=== PATIENT | male | born 1975 | race Asian ===

== ENCOUNTER 2024-03-07 13:43 | Emergency (ER) | payer OTHER, SELFPAY ==
[2024-03-07 13:46] VITALS: BP 171/98
[2024-03-07 14:08] LABS: % Basophils 1.1 % (0-2); % Eosinophils 2.4 % (0-6); % Immature Granulocytes 0.2 % (0-0.5); % Lymphocytes 33.5 % (20.5-51.1); % Neutrophils 47.8 % (42.2-75.2); Absolute Basophils 0.1 10^3/uL (0-0.2); Absolute Eosinophils 0.1 10^3/uL (0-0.7); Absolute Lymphocytes 1.5 10^3/uL (1.2-3.4); Absolute Monocytes 0.7 10^3/uL (0.1-0.6); Absolute Neutrophils 2.2 10^3/uL (1.4-6.5); Hematocrit 44.2 % (39.0-52.0); Hemoglobin 14.7 g/dL (13.0-18.0); Mean Corp Hgb Conc. 33.3 g/dL (33.0-37.0); Mean Corpuscular Hgb 27.3 pg (27.0-31.0); Mean Corpuscular Volume 82.2 fL (80.0-94.0); Mean Platelet Volume 10.8 fL (7.4-10.4); Nucleated Red Blood Cells % 0 % (-); Platelet Count 234 10^3/uL (130-400); Red Blood Cell Count 5.38 10^6/uL (4.70-6.10); Red Cell Dist. Width 13.8 % (11.5-14.5); White Blood Cell Count 4.6 10^3/uL (4.8-10.8)
[2024-03-07 14:17] LABS: ALT (SGPT) 30 U/L (0-50); AST (SGOT) 32 U/L (17-59); Albumin 4.5 g/dl (3.5-5.0); Alkaline Phosphatase 74 U/L (38-126); Blood Urea Nitrogen 13 mg/dl (9-20); Calcium 9.7 mg/dl (8.4-10.2); Glucose 96 mg/dl (70-99); Lipase 72 U/L (23-300); Sodium 136 mmol/L (135-145); Total Bilirubin 0.5 mg/dl (0.2-1.3); Total Protein 7.3 g/dl (6.3-8.2); eGFR > 60.00
[2024-03-07 14:29] LABS: Carbon Dioxide 23 mmol/L (22-30); Chloride 106 mmol/L (98-107); Potassium 4.1 mmol/L (3.5-5.1)
[2024-03-07 14:39] LABS: Urine Albumin Negative (Neg - Trace); Urine Bilirubin Negative (Negative); Urine Character Clear (Clear); Urine Color Yellow; Urine Glucose Negative (Negative); Urine Ketone Negative (Negative); Urine Leukocyte Negative (Negative); Urine Nitrite Negative (Negative); Urine Occult Blood Trace (Negative); Urine Urobilinogen Negative (Neg - 1+); Urine pH 6.5 (5.0-9.0)
[2024-03-07 14:49] LABS: Urine Red Blood Cell 0-2 /HPF (0-2); Urine White Cell 0-2 /HPF (0-5)
[2024-03-07 14:50] LABS: Urine Granular Cast 0-2 /LPF (0)
--- NOTE | 2024-03-07 16:18 | ED.GENMED ---
History of Present Illness
General
Chief Complaint: Abdominal Pain
Source: patient
Exam Limitations: none
Time Seen by Provider: 03/07/24 16:06
Nursing documentation reviewed up to this point in time: agreed with
Travel History
Have you had any contact with someone who has COVID-19?: No
Do you have any symptoms of coronavirus? Fever > 100 degrees, chills, cough, shortness of breath, sore throat, loss of taste or smell, muscle aches, or headache?: No
History of Present Illness
History of Present Illness:
Patient is a 48-year-old male who presents to the ER for evaluation of right-sided back pain and right-sided lower quadrant abdominal pain. He reports this started about 2-3 weeks ago however has been increasing in intensity for the past several
days. He denies any associated urinary frequency urgency or dysuria. Denies any obvious blood in his urine. Denies any nausea vomiting fever chills. He does report initially it was worse when he walked. He denies any injury.
Review of Systems
Review of Systems
Allergies reviewed?: Yes
All Other Systems: ROS reviewed and negative except as documented in HPI and ROS
Constitutional: Reports no symptoms; Denies fever, fatigue or chills
EENT: Reports no symptoms
Respiratory: Reports no symptoms
Cardiac: Reports no symptoms
ABD/GI: Reports no symptoms
Musculoskeletal: Reports back pain (right sided back pain )
Skin: Reports no symptoms
Neurological: Reports no symptoms
Psychiatric: Reports no symptoms
Phy Exam
General Physical Exam
General Presentation: no apparent distress
General age: appears stated age
General Skin: warm and dry
General Habitus: normal
General Mental: alert
General Hydration: appears well hydrated
Gastrointestinal Exam
Gastrointestinal Exam: normal bowel sounds, non tender and soft
Neurological Exam
Neurological Exam: alert and oriented x3
Musculoskeletal Exam
Musculoskeletal Exam: full ROM
Skin Exam
Skin Exam: normal color and warm/dry
Psychiatric Exam
Psychiatric Exam: normal mood/affect
Course
Orders/Labs/Results
Orders:
Orders
03/07/24 13:54
Complete Blood Count/With Diff Urgent
Comprehensive Metabolic Panel Urgent
Lipase Urgent
03/07/24 14:20
Urinalysis Reflex To Culture Urgent
Date Specimen was Collected: 03/07/24
Time Specimen was Collected: 13:49
Urine Microscopic Reflex Cult Urgent
03/07/24 16:39
CT Abd/pel Without Iv Or Oral Urgent
Comment:
Reason For Exam: right flank/right abd pain
Abnormal Lab Results
03/07/24 03/07/24
13:54 14:20
WBC 4.6 L 10^3/uL
(4.8-10.8)
MPV 10.8 H fL
(7.4-10.4)
Absolute Monos (auto) 0.7 H 10^3/uL
(0.1-0.6)
Monocytes % 15.0 H %
(1.7-9.3)
Ur Occult Blood Reflex Trace A
(Negative)
03/07/24 13:54
03/07/24 13:54
Vital Signs
Initial and Last Documented VS:
Initial Vital Signs
Temp Pulse Resp BP Pulse Ox
98.7 F 88 18 171/98 99
03/07/24 13:46 03/07/24 13:46 03/07/24 13:46 03/07/24 13:46 03/07/24 13:46
Last Documented Vital Signs
Temp Pulse Resp BP Pulse Ox
98.7 F 88 18 171/98 99
03/07/24 13:46 03/07/24 13:46 03/07/24 13:46 03/07/24 13:46 03/07/24 13:46
MDM/Problems Addressed
Differential Diagnosis Includes:
not limited to: Muscle pain, renal colic, less likely UTI
MDM/Problems Addressed:
Patient presents with right-sided back pain over the past several weeks rating to his right abdomen. This is worsened over the past several days. Initially he reports it was worse with movement. He denies any associated nausea vomiting blood in
urine. Seen by urgent care and sent here. On exam he is in no acute distress abdomen soft and nontender. Prior to CAT scan patient reports he is feeling much better and wanted to go home. He was agreeable to the CAT scan and CAT scan was done
and unremarkable. He is well-appearing he is afebrile he denies any recent fever chills nausea vomiting urinary symptoms. His white count is 4.6 his chemistries are normal 0�2 RBCs in urine. CAT scan is negative for any acute pathology normal
kidneys moderate fecal material throughout the colon mild prostate enlargement. Patient is well-appearing will DC with ibuprofen close outpatient with follow-up with family doctor
*Radiology
Radiology exam reviewed: radiology read reviewed
*Pulse Oximetry
Patient hypoxic: no
*Critical Care Note
Total Time (30-74mins, 75-104mins- exclusive of procedures): Not Applicable
ED Attending Note
-
Portions of this chart may have been created with voice recognition software.� Occasional wrong word or��sound alike� substitutions may have occurred due to the inherent limitations of voice recognition software.
Discharge Plan
Departure
Patient Disposition: Home (Routine Discharge)
Date of Disposition: 03/07/24
Time of Disposition: 18:41
Patient with high blood pressure during this ER visit?: Yes
Condition: Fair
Covid-19: Not Applicable
Discharge Problem:
Back pain
Instructions: Low Back Pain (DC), BLOOD PRESSURE
Referrals:
Hattie Higginbotham, [Family Provider] -
Activity Restrictions/Additional Instructions:
You may take ibuprofen for discomfort. Follow-up close with your family doctor in the next several days and return if any worsening of symptoms
Discharge Date and Time
Print Language: CYPRIOT
[2024-03-07 16:22] VITALS: BMI 24.2
== END 2024-03-07 19:12 | disposition home or self-care (01) ==
LOC: EMR 13:43
PROVIDERS: EMERGENCY PHYSICIAN Emergency Medicine; FAMILY PHYSICIAN Family Medicine
DX: M54.9 Dorsalgia, unspecified (principal); R10.31 Right lower quadrant pain
CPT/HCPCS: 99284; 74176; 80053; 81003; 81015; 83690; 85025

== ENCOUNTER → 2024-07-25 08:31 | Outpatient (REF) | payer OTHER, SELFPAY | LOC: RAD 08:31 | PROVIDERS: ATTENDING PHYSICIAN Family Medicine | DX: H93.12 Tinnitus, left ear (principal) | CPT/HCPCS: 70482; Q9967 ==

== ENCOUNTER → 2025-08-21 09:45 | Outpatient (REF) | payer OTHER, SELFPAY | LOC: HWRAD 09:45 | PROVIDERS: ATTENDING PHYSICIAN Family Medicine | DX: R05.9 Cough, unspecified (principal) | CPT/HCPCS: 71046 ==